=== PATIENT | female | born 1995 | race Caucasian/White ===

== ENCOUNTER 2016-12-06 13:21 | Emergency (ER) | payer SELFPAY ==
[~2016-12-06] VITALS: Ht 170.2 cm; Wt 65.0 kg
[2016-12-06 13:29] VITALS: Ht 170.2 cm; Wt 65.0 kg
[2016-12-06] MEDS ORDERED: LORAZEPAM 2 MG INJ IM ONE ×2 (14:00)
--- NOTE | 2016-12-06 14:30 | ERA ---
ER Documentation Chief Complaint Date/Time DATE: 12/06/16 Chief Complaint Altered level of consciousness HPI The patient is a 28-year-old female, presenting to the ER from a motel because of altered level of consciousness. She was medicated at the motel, the tankroom worker called 911 and she was brought to the ER for further evaluation. She unable to provide any history. The history is simply obtained from the paramedics. Past medical history/surgical history/social history/review of systems: Unable to obtain due to her condition ROS All systems reviewed and are negative except as per history of present illness. Medications Home Meds Reported Medications Lorazepam* (Lorazepam*) 1 Mg Tablet, 3 MG PO HS Y for ANXIETY, #30 TAB 12/06/16 Allergies Allergies: Coded Allergies: No Known Allergy (Unverified , 12/06/16) Physical Exam Vitals Vital Signs Date Time Temp Pulse Resp B/P Pulse Ox O2 Delivery O2 Flow Rate FiO2 12/06/16 14:53 97.8 90 20 149/89 99 12/06/16 14:05 90 18 150/80 99 12/06/16 13:50 80 105 156/79 99 12/06/16 13:29 98.6 101 18 135/79 99 Physical Exam Const: No acute distress. Head: Atraumatic. Eyes: Normal Conjunctiva. ENT: Normal External Ears, Nose and Mouth. Neck: Full range of motion. No meningismus. Resp: Clear to auscultation bilaterally. Cardio: Regular rate and rhythm, no murmurs. Abd: Soft, non distended, normal bowel sounds, non tender. Skin: No petechiae or rashes. Back: No midline or flank tenderness. Ext: No cyanosis, or edema. Neur: Awake and alert. No focal deficit Psych: Psychotic Result Diagram: 12/06/16 1505 12/06/16 1505 Results 24 hrs Laboratory Tests Test 12/06/16 15:05 Acetaminophen Level < 10.0ug/ml Alanine Aminotransferase (ALT/SGPT) 31IU/L Albumin 4.5g/dl Albumin/Globulin Ratio 1.32 Alkaline Phosphatase 72IU/L Anion Gap 18 Aspartate Amino Transf (AST/SGOT) 36IU/L Basophils # 0.110^3/ul Basophils % 1.4% Blood Morphology Comment Blood Urea Nitrogen 12mg/dl Calcium Level 9.5mg/dl Carbon Dioxide Level 26mmol/L Chloride Level 104mmol/L Creatinine 0.61mg/dl Direct Bilirubin 0.00mg/dl Eosinophils # 0.010^3/ul Eosinophils % 0.2% Ethyl Alcohol Level < 10.0mg/dl Globulin 3.40g/dl Glucose Level 90mg/dl Hematocrit 36.7% Hemoglobin 12.3g/dl Indirect Bilirubin 0.4mg/dl Lymphocytes # 2.210^3/ul Lymphocytes % 31.1% Mean Corpuscular Hemoglobin 26.7pg Mean Corpuscular Hemoglobin Concent 33.5g/dl Mean Corpuscular Volume 79.8fl Mean Platelet Volume 9.7fl Monocytes # 0.710^3/ul Monocytes % 9.6% Neutrophils # 4.110^3/ul Neutrophils % 57.7% Nucleated Red Blood Cells # 0.010^3/ul Nucleated Red Blood Cells % 0.0/100WBC Platelet Count 23518^3/UL Potassium Level 3.7mmol/L Red Blood Count 4.6010^6/ul Red Cell Distribution Width 14.9% Salicylates Level < 1.0mg/dl Serum HCG, Qualitative NEGATIVE Sodium Level 144mmol/L Total Bilirubin 0.4mg/dl Total Protein 7.9g/dl White Blood Count 7.110^3/ul Current Medications Medications (Trade) Dose Ordered Sig/Wan Route PRN Reason Start Time Stop Time Status Last Admin Dose Admin Lorazepam (Ativan) 1 mg ONCE ONCE IM 12/06/16 14:00 12/06/16 14:01 Cancel Lorazepam (Ativan) 2 mg ONCE ONCE IM 12/06/16 14:00 12/06/16 14:01 DC 12/06/16 14:00 Procedures/[facility] MEDICAL MAKING DECISION: The patient is a 21-year-old female, presenting to the ER because of acute psychosis. She was treated with Ativan 2 mg IM in the ER with good response. After resting the ER for a few hours, she is now awake, alert, able to answer questions appropriately. She denies homicidal, suicidal ideation. The differential diagnoses considered include but are not limited to psychosis, drug-induced psychosis, decompensated psychiatric illness, anxiety attack, panic attack Departure Diagnosis: Primary Impression: Acute psychosis Condition: Stable Comments She is awaiting for telepsychiatrist evaluation DANILO LONDONO MD Dec 06, 2016 14:30
--- NOTE | 2016-12-06 14:33 | RADRPT ---
PROCEDURE: Noncontrast CT Head. CLINICAL INDICATION: Altered level of consciousness. TECHNIQUE: Noncontrast CT of the head was obtained. The administered radiation dose was CTDI vol = 45.01, 45.01 mGy, DLP = 540.17, 90.03 mGy-cm. COMPARISON: There are no similar studies submitted for comparison. FINDINGS: The ventricles and sulci are within normal limits. There is no loss of lan-white differentiation to suggest acute territorial infarction. There is no acute intracranial hemorrhage or extra-axial fluid collection. There is no mass effect. No midline shift is identified. The orbits are within normal limits. The paranasal sinuses are well aerated. No destructive osseous lesion is identified. IMPRESSION: No acute intracranial hemorrhage or extra-axial fluid collection. Further findings as detailed above. RPTAT: PP .Elias Vela MD, Date Time Electronically viewed and signed by .Elias Vela MD, on 12/06/2016 14:33 .F/
[2016-12-06 15:14] LABS: BASOPHIL # 0.1 10^3/ul (0.0-0.1); BASOPHILS % 1.4 % (0.0-2.0); EOSINOPHILS % 0.2 % (0.0-7.0); HEMATOCRIT 36.7 % (37.0-47.0); HEMOGLOBIN 12.3 g/dl (12.0-16.0); LYMPHOCYTES # 2.2 10^3/ul (0.8-2.9); LYMPHOCYTES % 31.1 % (15.0-51.0); MEAN CORPUSCULAR HEMOGLOBIN 26.7 pg (29.0-33.0); MEAN CORPUSCULAR HGB CONC 33.5 g/dl (32.0-37.0); MEAN CORPUSCULAR VOLUME 79.8 fl (82.0-101.0); MEAN PLATELET VOLUME 9.7 fl (7.4-10.4); MONOCYTE # 0.7 10^3/ul (0.3-0.9); MONOCYTES % 9.6 % (0.0-11.0); NEUTROPHIL # 4.1 10^3/ul (1.6-7.5); NEUTROPHILS % 57.7 % (39.0-77.0); PLATELET COUNT 268 10^3/UL (140-440); RED CELL DISTRIBUTION WIDTH 14.9 % (11.5-14.5); UNCORRECTED WBC 7.1 10^3/ul (4.8-10.8); WHITE BLOOD COUNT 7.1 10^3/ul (4.8-10.8)
[2016-12-06 15:34] LABS: ALBUMIN 4.5 g/dl (3.3-4.9)
[2016-12-06 15:35] LABS: CHLORIDE 104 mmol/L (97-110); POTASSIUM 3.7 mmol/L (3.5-5.1); SODIUM 144 mmol/L (135-144)
[2016-12-06 15:37] LABS: ALANINE AMINOTRANSFERASE 31 IU/L (13-69); ALBUMIN/GLOBULIN RATIO 1.32; ALKALINE PHOSPHATASE 72 IU/L (42-121); ANION GAP 18 (8-16); ASPARTATE AMINO TRANSFERASE 36 IU/L (15-46); BILIRUBIN,INDIRECT 0.4 mg/dl (0-1.1); BILIRUBIN,TOTAL 0.4 mg/dl (0.2-1.3); BLOOD UREA NITROGEN 12 mg/dl (7-20); CARBON DIOXIDE 26 mmol/L (21-31); CREATININE 0.61 mg/dl (0.44-1.00); TOTAL PROTEIN 7.9 g/dl (6.1-8.1)
[2016-12-06 15:38] LABS: CALCIUM 9.5 mg/dl (8.4-10.2); GLUCOSE 90 mg/dl (70-220)
[2016-12-06 15:48] LABS: ACETAMINOPHEN < 10.0 ug/ml (10.0-30.0); ETHANOL < 10.0 mg/dl; SALICYLATE < 1.0 mg/dl (5.0-30.0)
[2016-12-06 15:50] LABS: CONDITION 1; LH ANALYZER COMMENTS 1
[2016-12-06] MEDS ORDERED: LORA1TAB PO (16:42)
--- NOTE | 2016-12-06 17:52 | PSY ---
Date/Time of Note Date/Time of Note DATE: 12/06/16 TIME: 17:48 Psychiatric Subjective Eval Consent Pt consented to telemedicine: Yes Subjective Evaluation Patient location: emergency Reason for consult: PSYCH History of present illness "i WAS JUST ON A WALKING TRAIL".. "i AM IN [place] NOW" 21 yo female BIB paramedics from a motel where she was acting bizarre. Pt was medicated in ED. She is disorganzied, speaks in word salad, says, she is in [place] now. Says she was in psychiatric hospital yesterday, does not take any meds. Appears to resp to internal stimuli. Poor historian. Past psychiatric history unknown Family History unknown Medical history Problems Medical Problems: (1) Acute psychosis Status: Acute Allergies: Coded Allergies: No Known Allergy (Unverified , 12/06/16) Psychiatric Objective Eval Mental Status Examination: Behavior: Bizarre Speech: Disorganized AFFECT: Libile Mood: Other Though Process: Loose, Tangential Thought Content: Delusions Suicidal: No Homicidal: No On 72 hour hold: No Orientation: x1 Cognition: Obtunded Insight: Severe Judgement: Severe Laboratory Results Laboratory Tests Test 12/06/16 15:05 Acetaminophen Level < 10.0ug/ml Alanine Aminotransferase (ALT/SGPT) 31IU/L Albumin 4.5g/dl Albumin/Globulin Ratio 1.32 Alkaline Phosphatase 72IU/L Anion Gap 18 Aspartate Amino Transf (AST/SGOT) 36IU/L Basophils # 0.110^3/ul Basophils % 1.4% Blood Morphology Comment Blood Urea Nitrogen 12mg/dl Calcium Level 9.5mg/dl Carbon Dioxide Level 26mmol/L Chloride Level 104mmol/L Creatinine 0.61mg/dl Direct Bilirubin 0.00mg/dl Eosinophils # 0.010^3/ul Eosinophils % 0.2% Ethyl Alcohol Level < 10.0mg/dl Globulin 3.40g/dl Glucose Level 90mg/dl Hematocrit 36.7% Hemoglobin 12.3g/dl Indirect Bilirubin 0.4mg/dl Lymphocytes # 2.210^3/ul Lymphocytes % 31.1% Mean Corpuscular Hemoglobin 26.7pg Mean Corpuscular Hemoglobin Concent 33.5g/dl Mean Corpuscular Volume 79.8fl Mean Platelet Volume 9.7fl Monocytes # 0.710^3/ul Monocytes % 9.6% Neutrophils # 4.110^3/ul Neutrophils % 57.7% Nucleated Red Blood Cells # 0.010^3/ul Nucleated Red Blood Cells % 0.0/100WBC Platelet Count 73770^3/UL Potassium Level 3.7mmol/L Red Blood Count 4.6010^6/ul Red Cell Distribution Width 14.9% Salicylates Level < 1.0mg/dl Serum HCG, Qualitative NEGATIVE Sodium Level 144mmol/L Total Bilirubin 0.4mg/dl Total Protein 7.9g/dl White Blood Count 7.110^3/ul Assessment and Plan Assessment/Diagnosis [place] I: PSYCHOSIS NOS VS INTOXICATION ON UNKNOWN SUBSTANCE (UDS PENDING) [place] II: DEFERED [place] III: NAD [place] IV: SEVERE [place] V: GAF20 Recommendation/Plan Medication Management ZYPREXA 5 MG IM PRN +aTIVAN 2 MG iM PRN Q 12 HRS AGITATION Psychotherapy DEFER TO INPT Pt. Caregiver/Family Education NA Follow-up/Disposition 5150 FOR GD; TRANSFER TO INPT PSYCH. 5150 Recommendation: LENORE Banks MD Dec 06, 2016 17:52
[2016-12-06 19:41] LABS: ADD UMIC YES; URINE BILIRUBIN (Dip) 1+ (NEGATIVE); URINE BLOOD (Dip) NEGATIVE (NEGATIVE); URINE COLOR YELLOW (YELLOW); URINE GLUCOSE (Dip) NEGATIVE (NEGATIVE); URINE KETONES (Dip) NEGATIVE (NEGATIVE); URINE LEUKOCYTE ESTERASE (Dip) NEGATIVE (NEGATIVE); URINE NITRITE (Dip) NEGATIVE (NEGATIVE); URINE TOTAL PROTEIN (Dip) 1+ (NEGATIVE); URINE UROBILINOGEN (Dip) 0.2 E.U./dL (0.1-1.0)
[2016-12-06 19:53] LABS: BARBITURATES Negative (NEGATIVE); BENZODIAZEPINES Negative (NEGATIVE); CANNABINOIDS Negative (NEGATIVE); COCAINE Negative (NEGATIVE); OPIATES Negative (NEGATIVE)
[2016-12-06 20:00] LABS: BACTERIA,URINE MANY; SQUAMOUS EPITHELIAL CELL,UR MODERATE; URINE RBCS 0-2 /HPF (0)
[2016-12-06 20:16] LABS: ICTOTEST NEGATIVE (NEGATIVE)
[2016-12-07 02:10] VITALS: BP 113/52; PULSE 70; RESP 17; TEMP 97.5
== END 2016-12-07 02:36 ==
LOC: EDBD 13:21 → E/R 13:21
DX: F23 Brief psychotic disorder (principal); R40.2212 Coma scale, best verbal response, none, at arrival to emergency department; R40.2362 Coma scale, best motor response, obeys commands, at arrival to emergency department; R40.2142 Coma scale, eyes open, spontaneous, at arrival to emergency department
CPT/HCPCS: 36415; 70450; 80053; 80306; 80307; 81001; 81003; 84703; 85025; 96372; J2060